=== PATIENT | female | born 1985 | race Caucasian/White ===

== ENCOUNTER 2018-04-15 18:51 | Emergency (ER) | payer SELFPAY ==
[2018-04-15 18:54] VITALS: BP 111/74; PULSE 90; RESP 20; TEMP 98.1
--- NOTE | 2018-04-15 19:23 | ED ---
Upper Extremity HPI - General Chief Complaint: Extremity Injury, Upper Stated Complaint: fall, lt arm injury Time Seen by Provider: 04/15/18 19:14 Source: patient, RN notes reviewed Mode of arrival: ambulatory Limitations: no limitations - History of Present Illness Initial Comments: This is a 32-year-old female who presents to the emergency department with chief complaint of left arm injury. Patient states that at 8 PM last evening she was cleaning her daughter's bedroom. She states that her left leg gave out underneath her and she fell forward. She tried to catch herself by extending her right arm but then fell and landed on her left side. She complains of left upper arm pain as well as shoulder pain. She denies any other injuries or trauma. Denies numbness or tingling. Denies recent fevers or chills, chest pain or shortness of breath, abdominal pain, nausea or vomiting, dizziness or headache. - Related Data Home Medications Medication Instructions Recorded Confirmed Albuterol Inhaler [Ventolin Hfa 2 puff INHALATION RT-Q6H PRN 04/15/18 04/15/18 Inhaler] Cetirizine HCl [Zyrtec] 10 mg PO DAILY 04/15/18 04/15/18 Allergies Allergy/AdvReac Type Severity Reaction Status Date / Time No Known Allergies Allergy Verified 04/15/18 19:26 Review of Systems ROS Statement: Those systems with pertinent positive or pertinent negative responses have been documented in the HPI. ROS Other: All systems not noted in ROS Statement are negative. Past Medical History Past Medical History: No Reported History History of Any Multi-Drug Resistant Organisms: None Reported Past Surgical History: Hysterectomy Past Psychological History: No Psychological Hx Reported Smoking Status: Current every day smoker Past Alcohol Use History: Occasional Past Drug Use History: None Reported General Exam - General Exam Comments Initial Comments: General: Awake and alert, well-developed; in no apparent distress. HEENT: Head atraumatic, normocephalic. Pupils are equal, round and reactive to light. Extraocular movements intact. Oropharynx moist without erythema or exudate. Neck: Supple. Normal ROM. Cardiovascular: Regular rate and rhythm. No murmurs, rubs or gallops. Chest symmetrical. Respiratory: Lungs clear to auscultation bilaterally. No wheezes, rales or rhonchi. Normal respiratory effort with no use of accessory muscles. Abdomen: Soft, non-tender, non-distended. No rigidity, rebound or guarding. Normal bowel sounds in all 4 quadrants. Musculoskeletal: Limited range of motion of the left shoulder due to pain. There is tenderness of the proximal humerus. No clavicular or scapular spine tenderness. No obvious gross deformities. Sensation is intact. Radial pulses are 2+ equal and palpable bilaterally. Skin: [place], warm and dry without rashes or lesions. Neurological: Alert and oriented x3. CN II-XII grossly intact. Speech is fluent and answers are appropriate. No focal neuro deficits. Psychiatric: Normal mood and affect. No overt signs of depression or anxiety noted. Limitations: no limitations Course Vital Signs 04/15/18 18:53 Temperature 98.1 F Pulse Rate 90 Respiratory 20 Rate Blood Pressure 111/74 O2 Sat by Pulse 100 Oximetry Medical Decision Making - Medical Decision Making This is a 32-year-old female who presented to the emergency department for evaluation of left arm injury. Patient plans of pain to the left upper arm and shoulder. Limited range of motion due to pain. Tenderness on palpation of proximal humerus. Neurovascularly intact. X-ray was obtained revealed no acute abnormalities of the left humerus or left shoulder. Patient likely suffering from contusion. Recommended rest, ice, elevation and Tylenol or ibuprofen as needed. Patient is in agreement with plan and voices understanding. Vital signs are stable and she is in no acute distress. She'll be discharged home at this time. All questions answered. - Radiology Data Radiology results: report reviewed X-ray left humerus and left shoulder findings: Bone mineralization, joint spaces and alignment are maintained. There is calcification at the insertion of the triceps tendon possibly due to calcific tendinitis, correlate for point tenderness. Impression: No fracture or dislocation of the left shoulder. Additional findings above. Disposition Clinical Impression: Contusion, arm, upper Disposition: HOME SELF-CARE Condition: Good Instructions: Contusion in Adults (ED), RICE Therapy (ED) Additional Instructions: Please rest, ice, elevate and take ibuprofen or Tylenol as needed. Please follow up with primary care provider within 1-2 days. Return to emergency department if symptoms should worsen or any concerns arise. Is patient prescribed a controlled substance at d/c from ED?: No Referrals: None,Stated [Primary Care Provider] - 1-2 days Time of Disposition: 20:22
--- NOTE | 2018-04-15 19:54 | XR ---
Left humerus and left shoulder HISTORY: Trauma and pain 2 views of the left humerus and 3 views of the left shoulder Bone mineralization, joint spaces and alignment are maintained. There is calcification at the inserti on of the triceps tendon possibly due to calcific tendinitis, correlate for point tenderness. IMPRESSION: No fracture or dislocation of the left shoulder. Additional findings above.
== END 2018-04-15 20:31 | disposition home or self-care (01) ==
LOC: EC 18:51
DX: S40.022A Contusion of left upper arm, initial encounter (principal); F17.200 Nicotine dependence, unspecified, uncomplicated; Z79.899 Other long term (current) drug therapy; W01.0XXA Fall on same level from slipping, tripping and stumbling without subsequent striking against object, initial encounter; Y93.89 Activity, other specified; Y92.003 Bedroom of unspecified non-institutional (private) residence as the place of occurrence of the external cause
CPT/HCPCS: 99283

== ENCOUNTER 2019-01-18 12:12 | Emergency (ER) | payer OTHER ==
[2019-01-18] MEDS ORDERED: SODIUM CHLORIDE 0.9% 1,000 ML IV ONE (12:21)
[2019-01-18] MEDS ORDERED: ONDANSETRON 4 MG/2 ML VIAL IVP STA (12:22)
[2019-01-18 12:51] LABS: Basophils % (A) 0 %; Eosinophils # (A) 0.2 k/uL (0-0.7); Eosinophils % (A) 2 %; HCT 42.1 % (34.0-46.0); HGB 14.2 gm/dL (11.4-16.0); Lymphocytes # (A) 1.8 k/uL (1.0-4.8); Lymphocytes % (A) 17 %; MCH 30.3 pg (25.0-35.0); MCHC 33.7 g/dL (31.0-37.0); MCV 89.7 fL (80.0-100.0); Mean Platelet Volume 7.5; Monocytes # (A) 0.4 k/uL (0-1.0); Monocytes % (A) 4 %; Neutrophils # (A) 8.4 k/uL (1.3-7.7); Neutrophils % (A) 77 %; Platelet Count 267 k/uL (150-450); RBC 4.69 m/uL (3.80-5.40); RDW 13.6 % (11.5-15.5); WBC 10.9 k/uL (3.8-10.6)
[2019-01-18] MEDS ORDERED: ALPRAZolam 1 MG TAB PO STA (12:55)
[2019-01-18 13:01] LABS: ALT 38 U/L (9-52); AST 24 U/L (14-36); Albumin 4.6 g/dL (3.5-5.0); Alkaline Phosphatase 62 U/L (38-126); Anion Gap 12 mmol/L; Blood Urea Nitrogen 14 mg/dL (7-17); Calcium 9.5 mg/dL (8.4-10.2); Carbon Dioxide 19 mmol/L (22-30); Chloride 114 mmol/L (98-107); Glucose 97 mg/dL (74-99); Lipase 61 U/L (23-300); Potassium 4.1 mmol/L (3.5-5.1); Sodium 145 mmol/L (137-145); Total Bilirubin 0.4 mg/dL (0.2-1.3); Total Protein 6.9 g/dL (6.3-8.2)
--- NOTE | 2019-01-18 13:22 | ED ---
Nausea/Vomiting/Diarrhea HPI - General Chief complaint: Nausea/Vomiting/Diarrhea Stated complaint: N/V/D Time Seen by Provider: 01/18/19 12:21 Source: patient, EMS Mode of arrival: EMS Limitations: no limitations - History of Present Illness Initial comments: 33-year-old male presented for nausea and vomiting. Patient states she's heavily drinking last night and began experiencing nausea vomiting today. Patient admits to mild abdominal cramping. Patient states she feels some over. Patient called EMS for evaluation emergency department. Patient denies daily drinking. Remaining via systems negative patient denies any hematemesis. Patient denies any recent fever, chills, shortness of breath, chest pain, back pain, severe abdominal pain, numbness or tingling, dysuria or hematuria, constipation or diarrhea, headaches or visual changes, or any other complaints. Upon arrival patient appears nontoxic. I was obtaining history patient was sticking fingers down throat to promote emesis. - Related Data Home Medications Medication Instructions Recorded Confirmed Albuterol Inhaler [Ventolin Hfa 2 puff INHALATION RT-Q6H PRN 04/15/18 04/15/18 Inhaler] Cetirizine HCl [Zyrtec] 10 mg PO DAILY 04/15/18 04/15/18 Allergies Allergy/AdvReac Type Severity Reaction Status Date / Time No Known Allergies Allergy Verified 04/15/18 19:26 Review of Systems ROS Statement: Those systems with pertinent positive or pertinent negative responses have been documented in the HPI. ROS Other: All systems not noted in ROS Statement are negative. Past Medical History Past Medical History: No Reported History History of Any Multi-Drug Resistant Organisms: None Reported Past Surgical History: Hysterectomy Past Psychological History: No Psychological Hx Reported Smoking Status: Current every day smoker Past Alcohol Use History: Occasional Past Drug Use History: None Reported General Exam - General Exam Comments Initial Comments: General: The patient is awake and alert, in no distress, and does not appear acutely ill. Eye: +3 mm pupils are equal, round and reactive to light, extra-ocular movements are intact. No nystagmus. There is normal conjunctiva bilaterally. No signs of icterus. Ears, nose, mouth and throat: There are moist mucous membranes and no oral lesions. Neck: The neck is supple, there is no tenderness or JVD. Cardiovascular: There is a regular rate and rhythm. No murmur, rub or gallop is appreciated. Respiratory: Lungs are clear to auscultation, respirations are non-labored, breath sounds are equal. No wheezes, stridor, rales, or rhonchi Gastrointestinal: Soft, non-distended, non-tender abdomen without masses or organomegaly noted. There is no rebound or guarding present. Bowel sounds are unremarkable. Musculoskeletal: Normal ROM, no tenderness. Strength 5/5. Sensation intact. Pulses equal bilaterally 2+. Neurological: A&O x 3. CN II-XII intact, There are no obvious motor or sensory deficits. Coordination appears grossly intact. Speech is normal. Skin: Skin is warm and dry and no rashes or lesions are noted. Psychiatric: Cooperative, appropriate mood & affect, normal judgment. Limitations: no limitations Course Vital Signs 01/18/19 01/18/19 12:16 13:43 Temperature 97.2 F L 97.8 F Pulse Rate 64 92 Respiratory 18 16 Rate Blood Pressure 109/78 110/62 O2 Sat by Pulse 100 99 Oximetry Medical Decision Making - Medical Decision Making Laboratory laboratory studies revealed mild leukocytosis most likely reactive. Remaining electrolytes within normal limits. Patient history of CONSUMPTION. PATIENT GIVEN IV HYDRATION WELL ZOFRAN in EMS, no further Zofran was administered because EKF revealed QT prolongation. PATIENT TREATED SYMPTOMATICALLy.. PATIENT WILL BE DISCHARGED home with symptomatic treatment. BENIGN ABDOMINAL EXAM. DISCUSSED CASE ATTENDING PROVIDER DR. TERRELL WAS AGREEABLE PATIENT'S PLAN DISCHARGE. PATIENT DISCHARGED APPEARING WELL. - Lab Data Result diagrams: 01/18/19 12:25 01/18/19 12:25 Lab Results 01/18/19 01/18/19 Range/Units 12:25 12:25 WBC 10.9 H (3.8-10.6) k/uL RBC 4.69 (3.80-5.40) m/uL Hgb 14.2 (11.4-16.0) gm/dL Hct 42.1 (34.0-46.0) % MCV 89.7 (80.0-100.0) fL MCH 30.3 (25.0-35.0) pg MCHC 33.7 (31.0-37.0) g/dL RDW 13.6 (11.5-15.5) % Plt Count 267 (150-450) k/uL Neutrophils % 77 % Lymphocytes % 17 % Monocytes % 4 % Eosinophils % 2 % Basophils % 0 % Neutrophils # 8.4 H (1.3-7.7) k/uL Lymphocytes # 1.8 (1.0-4.8) k/uL Monocytes # 0.4 (0-1.0) k/uL Eosinophils # 0.2 (0-0.7) k/uL Basophils # 0.0 (0-0.2) k/uL Sodium 145 (137-145) mmol/L Potassium 4.1 (3.5-5.1) mmol/L Chloride 114 H (98-107) mmol/L Carbon Dioxide 19 L (22-30) mmol/L Anion Gap 12 mmol/L BUN 14 (7-17) mg/dL Creatinine 0.66 (0.52-1.04) mg/dL Est GFR (CKD-EPI)AfAm >90 (>60 ml/min/1.73 sqM) Est GFR (CKD-EPI)NonAf >90 (>60 ml/min/1.73 sqM) Glucose 97 (74-99) mg/dL Calcium 9.5 (8.4-10.2) mg/dL Total Bilirubin 0.4 (0.2-1.3) mg/dL AST 24 (14-36) U/L ALT 38 (9-52) U/L Alkaline Phosphatase 62 (38-126) U/L Total Protein 6.9 (6.3-8.2) g/dL Albumin 4.6 (3.5-5.0) g/dL Lipase 61 (23-300) U/L - EKG Data -: EKG Interpreted by Me EKG Comments: Ventricular rate 86 bpm, IN interval 146 most seconds, QRS duration 88 ms, QT/ QTC 420/502 ms. There is prolongation of the QT interval, patient was given Zofran prior to obtaining EKG in EMS. Sinus arrythmia noted, no ST elevation or depression. No T wave inversion. Disposition Clinical Impression: Vomiting Disposition: HOME SELF-CARE Condition: Good Instructions (If sedation given, give patient instructions): Abuse of Alcohol ( ED), Acute Nausea and Vomiting (ED) Additional Instructions: Please use medication as discussed. Please follow-up with family doctor in the next 2 days of symptoms have not improved. Please return to emergency room if the symptoms increase or worsen or for any other concerns. Is patient prescribed a controlled substance at d/c from ED?: No Referrals: None,Stated [Primary Care Provider] - 1-2 days [facility] [NON-STAFF] - 1-2 days Time of Disposition: 13:24
[2019-01-18] MEDS ORDERED: KETOROLAC 30 MG/ML 1 ML VIAL IVP STA (13:24)
[2019-01-18 13:45] VITALS: BP 110/62; PULSE 92; RESP 16; TEMP 97.8
== END 2019-01-18 13:45 | disposition home or self-care (01) ==
LOC: EC 12:12
DX: R11.2 Nausea with vomiting, unspecified (principal); D72.829 Elevated white blood cell count, unspecified; F17.200 Nicotine dependence, unspecified, uncomplicated; Z79.899 Other long term (current) drug therapy
CPT/HCPCS: 36415; 93005; 80053; 83690; 85025; 99284; 96374; 96361; J1885